=== PATIENT | male | born 1965 | race Caucasian/White ===

== ENCOUNTER 2018-12-09 08:32 | Day surgery (SDC) | payer BC ==
[2018-12-09] MEDS ORDERED: HYDROCODONE/APAP 5/325MG TABLET PO ONE (08:33)
[2018-12-09] MEDS ORDERED: SEVOFLURANE 250 ML INH ONE (08:33)
[2018-12-09] MEDS ORDERED: EPINEPHRINE 1 MG/ML AMPUL SQ ONE (08:33)
[2018-12-09] MEDS ORDERED: MIDAZOLAM HCL 2MG/2ML VIAL IV ONE (08:33)
[2018-12-09] MEDS ORDERED: DEXAMETHASONE 4 MG/ML 1ML VIAL IVP ONE ×2 (08:33)
[2018-12-09] MEDS ORDERED: BUPIVACAINE LIPOSOME/PF 133MG/10ML VIAL IV ONE (08:33)
[2018-12-09] MEDS ORDERED: PROPOFOL 10 MG/ML VIAL IV ONE (08:33)
[2018-12-09] MEDS ORDERED: FENTANYL PF 100MCG/2ML VIAL IV ONE (08:33)
[2018-12-09] MEDS ORDERED: BUPIVACAINE 0.25% MPF 30ML VIAL IVP ONE (08:33)
[2018-12-09] MEDS ORDERED: LIDOCAINE 2% MDV (20MG/ML) 20ML VIAL IV ONE (08:33)
[2018-12-09] MEDS ORDERED: ONDANSETRON HCL IV 4 MG/2 ML VIAL IVP ONE (08:33)
[2018-12-09 08:50] LABS: BASO % 0.8 % (0-6); EOS % 4.7 % (0-6); GRAN % 61.9 % (47-80); HEMATOCRIT 46.4 % (42.0-52.0); HEMOGLOBIN 16.6 gm/dl (14.0-18.0); LYMPH % 23.8 % (16-45); MEAN CELL VOLUME 85.9 fl (81-97); MEAN CORPUSCULAR HEMOGLOBIN 30.7 pg (27-33); MEAN CORPUSCULAR HGB CONC 35.8 g/dl (32-36); MEAN PLATELET VOLUME 10.6 fl (7.4-10.4); MONO % 8.8 % (0-9); PLATELET COUNT 246 K/uL (130-400); WHITE BLOOD COUNT W/O DIFF 7.6 K/uL (4.2-12.2)
[2018-12-09 09:02] LABS: BLOOD UREA NITROGEN 12 mg/dL (6-20); CREATININE 0.9 mg/dL (0.7-1.2); EST GLOMERULAR FILTRATION RATE > 60 mL/min; GLUCOSE,RANDOM 107 mg/dL (74-109)
--- NOTE | 2018-12-10 09:50 | Operative Note ---
DATE OF SURGERY: 12/09/2018 Surgeon: Alvaro Haque DO PREOPERATIVE DIAGNOSES: 1. Re-tear of the right rotator cuff. 2. Impingement syndrome, right shoulder. 3. Tear of the biceps tendon, right shoulder. POSTOPERATIVE DIAGNOSES: 1. Re-tear of the right rotator cuff. 2. Impingement syndrome, right shoulder. 3. Tear of the biceps tendon, right shoulder. OPERATION: 1. Arthroscopic repair of the right rotator cuff. 2. Arthroscopic subacromial decompression and acromioplasty, right shoulder. 3. Arthroscopic debridement of the biceps tendon, right shoulder. DESCRIPTION OF PROCEDURE: This 53-year-old male was taken to the operating room and placed in the supine position on the operating room table. General anesthetic was administered. He was placed in the beach chair position with all bony prominences well padded and the head well secured. The right shoulder was prepped with Hibiclens and draped in the usual sterile fashion. A posterior portal was established in the glenohumeral joint, and initial evaluation of the joint demonstrated disruption of the biceps tendon and the subscapularis appeared to be intact. No arthritic changes were identified. Disruption of the supraspinatus tendon was also identified from the undersurface of the rotator cuff. Through an anterior portal, we debrided the biceps tendon to the superior aspect of the labrum and the stump of the biceps in the groove was retracted. The scope was placed in the subacromial space, and thorough subacromial decompression and acromioplasty was performed. There was extensive amount of bursal thickening in the subacromial space. Once this had been removed, we had excellent visualization of the rotator cuff. It was a V-shaped tear and it also was delaminated on both sides. We felt that the best way to repair this would be a [id number] repair, which was accomplished after the scarred tendon was debrided. In addition, the tuberosity was thoroughly debrided and old suture materials were removed. Once this had been accomplished, 3 [id number]-qg-[id number] sutures were placed. The one closest to the tuberosity, the tails were passed through a SwiveLock anchor. A 4.75 SwiveLock anchor was used and this was then drawn down and implanted to securely fix the most distal margins of the repair. The wound was then irrigated and suctioned and instruments were removed. The portals closed with 4-0 nylon suture. Sterile dressings with an UltraSling were applied and the patient was taken to the recovery room in satisfactory condition. GROSS PATHOLOGY: This patient had a severe re-tear of his rotator cuff with a V-shaped tear being identified which was repaired with [id number] sutures and anchored distally with a SwiveLock in the manner described above. CC: DO JERROD Mina
== END 2018-12-09 13:20 | disposition home or self-care (01) ==
LOC: SUR 08:32
PROVIDERS: ATTEND Orthopaedic Surgery
DX: M75.101 Unspecified rotator cuff tear or rupture of right shoulder, not specified as traumatic (principal); M75.41 Impingement syndrome of right shoulder; S46.111A Strain of muscle, fascia and tendon of long head of biceps, right arm, initial encounter; I10 Essential (primary) hypertension; E78.00 Pure hypercholesterolemia, unspecified
CPT/HCPCS: 76942; 80048; 85025; C9290; J0171; J2405

== ENCOUNTER 2019-11-05 08:39 | Day surgery (SDC) | payer BC ==
[~2019-11-05 08:39] MED LIST: ACETAMINOPHEN 1,000 MG/100 ML BTL IVPB ONE
[2019-11-05] MEDS ORDERED: SEVOFLURANE 250 ML INH ONE (08:40)
[2019-11-05] MEDS ORDERED: KETOROLAC 30 MG/ML VIAL IVP ONE (08:40)
[2019-11-05] MEDS ORDERED: ONDANSETRON HCL IV 4 MG/2 ML VIAL IVP ONE (08:40)
[2019-11-05] MEDS ORDERED: FENTANYL PF 100MCG/2ML VIAL IV ONE (08:40)
[2019-11-05] MEDS ORDERED: PROPOFOL 10 MG/ML VIAL IV ONE (08:40)
[2019-11-05] MEDS ORDERED: LIDOCAINE 2% MDV (20MG/ML) 20ML VIAL IV ONE (08:40)
[2019-11-05] MEDS ORDERED: MIDAZOLAM HCL 2MG/2ML VIAL IV ONE (08:40)
[2019-11-05] MEDS ORDERED: RINGERS SOLUTION,LACTATED 1,000 ML IV ONE ×2 (09:10→11:12)
[2019-11-05] MEDS: MORPHINE SULFATE (PACU ONLY) 4 MG/ML VIAL IVP PRN ×2 (11:24→11:30)
[2019-11-05] MEDS ORDERED: HYDROCODONE/APAP 5/325MG TABLET PO ONE (11:53)
--- NOTE | 2019-11-05 14:41 | Operative Note ---
DATE OF SURGERY: 11/05/2019 SURGEON: Alvaro Haque D.O. REFERRING PHYSICIAN: Mikaela White D.O. PREOPERATIVE DIAGNOSIS: 1. 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 2. SYNOVITIS OF THE LEFT ELBOW. POSTOPERATIVE DIAGNOSIS: 1. 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 2. SYNOVITIS OF THE LEFT ELBOW. OPERATION: 1. RELEASE CONJOINED TENDON AND EPICONDYLECTOMY OF THE LEFT ELBOW. 2. ARTHROTOMY AND SYNOVECTOMY OF THE RADIOHUMERAL JOINT LEFT ELBOW. DESCRIPTION: This 54-year-old male was taken to the Operating Room and placed in the supine position on the operating room table. General anesthetic was administered. The left upper extremity was elevated, it was prepped with Hibiclens and draped in the usual sterile fashion. It was exsanguinated and the tourniquet inflated to 250 mmHg. A curvilinear incision was made over the lateral humeral epicondyle of the left elbow and dissection was carried down through the skin and subcutaneous tissue. Hemostasis was obtained with electrocautery. A "U" type incision was made over the conjoined tendon and it was elevated off the lateral humeral epicondyle with subperiosteal dissection. An osteotome was used to cut the arthritic spurs off the lateral humeral epicondyle. A rasp was used to smooth the cut bony surface of the lateral humeral epicondyle. We divided the tendon and the joint capsule to the level of the radiohumeral joint. An arthrotomy incision was subsequently made and we were easily able to identify the synovial phalange present inferiorly. This did show some hyperemia and thickening, it was elevated and hemostasis obtained with electrocautery and it was removed. The wound was irrigated with lactated Ringer's solution. The articular cartilage of the radiohumeral joint appeared entirely normal. We then placed the conjoined tendon back over the defect and the conjoined tendon was sewn back down to its anatomic position, it was slightly shortened in its position and 3-0 Vicryl was used for this purpose. The subcutaneous tissue was closed with the same suture and the skin was closed with running 4-0 nylon sutures. Sterile dressings were applied and plaster splint immobilization with the elbow flexed at 90 degrees in neutral position, pronation and supination. The patient was then taken to the Recovery Room in satisfactory condition. GROSS PATHOLOGY; This patient demonstrated synovitis of the radiohumeral joint as well as chronic lateral humeral epicondylitis and partial epicondylectomy in the manner described above. JOB NUMBER: [id number] [facility]
== END 2019-11-05 12:10 | disposition home or self-care (01) ==
LOC: SUR 08:39
PROVIDERS: ATTEND Orthopaedic Surgery
DX: M77.12 Lateral epicondylitis, left elbow (principal); M65.9 Synovitis and tenosynovitis, unspecified; I10 Essential (primary) hypertension; E78.00 Pure hypercholesterolemia, unspecified; F17.210 Nicotine dependence, cigarettes, uncomplicated
CPT/HCPCS: 24357; 24359; 24102; 01710; J1885; J2405; J3010; J2270; J7120